=== PATIENT | male | born 1995 | race Caucasian/White ===

== ENCOUNTER → 2017-01-14 | Outpatient (CLI) | payer OTHER ==
--- NOTE | 2017-01-14 11:33 | NUR ---
Eval 2 Hr/Client presented for an eval as a referral from his po for having a dirty UA while on probation for a pot possession charge.
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
== END | disposition home or self-care (01) ==
LOC: ADTC.GI 08:35 → ADTC.GIY 10:00
DX: F12.20 Cannabis dependence, uncomplicated (principal); Z55.9 Problems related to education and literacy, unspecified; Z62.810 Personal history of physical and sexual abuse in childhood